=== PATIENT | female | born 1985 | race Caucasian/White ===

== ENCOUNTER 2019-01-02 14:04 | Emergency (ER) | payer MEDICAID ==
[2019-01-02] MEDS: DIPHENHYDRAMINE 50 MG CAP PO (17:15)
[2019-01-02] MEDS: KETOROLAC 60 MG INJ IM (17:16)
== END 2019-01-02 17:59 | disposition home or self-care (01) ==
LOC: FTE 17:59
DX: B01.9 Varicella without complication (principal); B09 Unspecified viral infection characterized by skin and mucous membrane lesions
CPT/HCPCS: 81025; 96372; 99284-25